=== PATIENT | male | born 1975 | race Caucasian/White ===

== ENCOUNTER 2024-01-09 14:41 | Inpatient (IN) | payer SELFPAY ==
[~2024-01-09] VITALS: Ht 167.6 cm; Wt 73.5 kg
[2024-01-09] MEDS: SODIUM CHLORIDE 0.9% 1000ML BAG (SEPSIS BOLUS) IV ONE (15:16)
[2024-01-09 15:21] LABS: BASOPHILS % 0.3 % (0.0-2.0); EOSINOPHILS % 1.9 % (0.0-5.0); LYMPHOCYTES % 29.2 % (20.0-50.0); MEAN CORPUSCULAR HEMOGLOBIN 29.6 pg (28.0-32.0); MEAN CORPUSCULAR HGB CONC 32.6 g/dL (31.0-37.0); MEAN PLATELET VOLUME 8.5 fl (7.4-10.4); MONOCYTES % 5.3 % (2.0-8.0); NEUTROPHILS % 63.3 % (40.0-76.0); PLATELET 281 x1000/uL (130-400); RED BLOOD CELL COUNT 4.39 mill/uL (4.7-6.1); WHITE BLOOD COUNT 13.9 x1000/uL (4.5-11.0)
[2024-01-09 15:30] LABS: CHLORIDE 108 mEq/L (98-107); POTASSIUM 3.3 mEq/L (3.5-5.1); SODIUM 140 mEq/L (136-145)
[2024-01-09 15:31] LABS: CALCIUM 9.7 mg/dL (8.7-10.4); CARBON DIOXIDE 25 mEq/L (21-32)
[2024-01-09] MEDS: CEFTRIAXONE 1GM/50ML 50 ML IV ONE (15:35)
[2024-01-09 15:36] LABS: CREATININE 0.9 mg/dL (0.6-1.3); GLUCOSE 131 mg/dL (70-105); UREA NITROGEN BLOOD 12 mg/dL (9-23)
[2024-01-09 15:38] LABS: ALANINE AMINOTRANSFERASE 16 IU/L (10-49); ALBUMIN 4.6 g/dL (3.2-4.8); ASPARTATE AMINOTRANSFERASE 18 IU/L (<34); BILIRUBIN DIRECT 0.1 mg/dL (<=3.0); BILIRUBIN TOTAL 0.5 mg/dL (0.1-1.0); PROTEIN TOTAL 8.2 g/dL (6.0-8.3)
[2024-01-09 15:43] LABS: TROPONIN I HIGH SENSITIVITY < 4 ng/L (3.0-53)
[2024-01-09 15:49] LABS: PROTHROMBIN TIME 10.7 sec (9.6-11.0)
[2024-01-09] MEDS: POTASSIUM CHLORIDE 20MEQ TABLET SR PO ONE (16:06)
[2024-01-09] MEDS: DOXYCYCLINE 100MG/100ML 100 ML IV ONE (16:50)
[2024-01-09] MEDS ORDERED: ACETAMINOPHEN 325MG TABLET PO PRN (17:15)
[2024-01-09] MEDS ORDERED: DOCUSATE SODIUM 100MG CAPSULE PO PRN (17:15)
[2024-01-09] MEDS ORDERED: CLONIDINE 0.1MG TABLET PO PRN (17:15)
[2024-01-09] MEDS ORDERED: GUAIFENESIN 200MG/10ML SUGAR FREE UDC PO PRN (17:15)
[2024-01-09] MEDS ORDERED: MAGNESIUM/ALUMINUM HYDROXIDE/SIMETHICONE 30ML UDC PO PRN (17:15)
[2024-01-09] MEDS ORDERED: ONDANSETRON HCL 4MG/2ML INJ IV PRN (17:15)
[2024-01-09 17:38] LABS: CLARITY URINE CLEAR (CLEAR); COLOR URINE YELLOW (YELLOW); GLUCOSE URINE NEGATIVE (NEGATIVE); KETONES URINE NEGATIVE (NEGATIVE); LEUKOCYTE ESTERASE URINE NEGATIVE (NEGATIVE); NITRITE URINE NEGATIVE (NEGATIVE); OCCULT BLOOD URINE 1+ (NEGATIVE); PROTEIN URINE NEGATIVE (NEGATIVE); SPECIFIC GRAVITY URINE 1.006 (1.005-1.030); UROBILINOGEN URINE 0.2 E.U./dL (0.2-1.0)
[2024-01-09] MEDS ORDERED: IPRATROPIUM/ALBUTEROL 0.5-3(2.5)MG/3ML NEB HHN NR (17:45)
[2024-01-09 17:50] LABS: *AMPHETAMINES SCREEN URINE NEGATIVE (NEGATIVE); *BARBITURATES SCREEN URINE NEGATIVE (NEGATIVE); *BENZODIAZEPINES SCREEN URINE NEGATIVE (NEGATIVE); *COCAINE SCREEN URINE NEGATIVE (NEGATIVE); CANNABINOID URINE SCREEN NEGATIVE (NEGATIVE); ECSTASY MDMA SCREEN URINE NEGATIVE (NEGATIVE); METHADONE URINE SCREEN NEGATIVE (NEGATIVE); OPIATES URINE SCREEN NEGATIVE (NEGATIVE); PHENCYCLIDINE URINE SCREEN NEGATIVE (NEGATIVE)
[2024-01-09 18:25] LABS: BACTERIA URINE TRACE; SQUAMOUS EPITHELIAL CELL URINE RARE /lpf (RARE/1+)
[2024-01-09 18:26] LABS: WBC URINE 0-2 /hpf (0-2)
[2024-01-09 18:26] LABS: IRON 28 ug/dL (65-175)
[2024-01-09 18:29] LABS: TOTAL IRON BINDING CAPACITY 358 ug/dl (250-425)
[2024-01-09] MEDS: METHYLPREDNISOLONE SOD SUCC 125MG/2ML (ACT-O-VIAL) IV NR (18:29)
[2024-01-09] MEDS: LACTATED RINGERS 1,000 ML IV ONE (18:29)
[2024-01-09] MEDS: BENZONATATE 100MG CAPSULE PO NR (18:30)
[2024-01-09 18:55] LABS: POTASSIUM 3.3 mEq/L (3.5-5.1)
[2024-01-09 18:56] LABS: FERRITIN 108 ng/mL (22-322); FOLIC ACID (FOLATE) SERUM 18.46 ng/mL (>5.38)
[2024-01-09 18:57] LABS: VITAMIN B12 SERUM 495 pg/mL (211-911)
[2024-01-09 20:00] VITALS: BP 127/68; PULSE 88; RESP 16; TEMP 37.66968; O2SAT 94
[2024-01-09] MEDS: FAMOTIDINE 20MG TABLET PO SCH (21:12)
[2024-01-09] MEDS: GUAIFENESIN 600MG ER TABLET PO SCH (21:12)
[2024-01-09 23:30] VITALS: BP 139/73; PULSE 79; RESP 18; TEMP 37.28076; O2SAT 96
[2024-01-09 23:31] LABS: CREATINE KINASE 94 IU/L (46-171)
[2024-01-09 23:32] LABS: CREATINE KINASE MB FRACTION < 0.5 ng/mL (0.5-3.6)
[2024-01-09 23:45] VITALS: BP 106/62; PULSE 78; RESP 20; TEMP 36.114; O2SAT 98
[2024-01-09 23:55] VITALS: BP 106/62; PULSE 78; RESP 20; TEMP 36.14
[2024-01-09 23:59] LABS: TROPONIN I HIGH SENSITIVITY < 4 ng/L (3.0-53)
[2024-01-10] MEDS ORDERED: BENZONATATE 100MG CAPSULE PO PRN
[2024-01-10] MEDS ORDERED: IOHEXOL-350 100 ML BOTTLE ONE (00:28)
[2024-01-10 04:00] VITALS: BP 102/64; PULSE 60; RESP 17; TEMP 36.72516; O2SAT 97
[2024-01-10] MEDS: DOXYCYCLINE 100MG/100ML 100 ML IV SCH ×2 (04:48→18:00)
[2024-01-10 07:52] LABS: CREATINE KINASE MB FRACTION < 0.5 ng/mL (0.5-3.6)
[2024-01-10 07:53] LABS: CARBON DIOXIDE 23 mEq/L (21-32); CHLORIDE 111 mEq/L (98-107); POTASSIUM 4.1 mEq/L (3.5-5.1); SODIUM 141 mEq/L (136-145)
[2024-01-10 07:54] LABS: CALCIUM 9.6 mg/dL (8.7-10.4)
[2024-01-10 07:56] LABS: CREATINE KINASE 76 IU/L (46-171)
[2024-01-10 07:57] LABS: T4 FREE 1.04 ng/dL (0.89-1.76); THYROID STIMULATING HORMONE 0.32 uIU/mL (0.55-4.78)
[2024-01-10 07:58] LABS: CREATININE 0.8 mg/dL (0.6-1.3); GLUCOSE 143 mg/dL (70-105)
[2024-01-10 07:59] LABS: TRIGLYCERIDE 52 mg/dL (0-150); UREA NITROGEN BLOOD 11 mg/dL (9-23)
[2024-01-10 08:00] VITALS: BP 109/74; PULSE 65; RESP 17; TEMP 36.61404; O2SAT 97
[2024-01-10 08:00] LABS: LDL CHOLESTEROL 165 mg/dL (5-100)
[2024-01-10 08:01] LABS: CHOLESTEROL 207 mg/dL (<200); HDL CHOLESTEROL 45 mg/dL (>55); PHOSPHORUS 3.6 mg/dL (2.5-4.9)
[2024-01-10 08:21] LABS: TROPONIN I HIGH SENSITIVITY < 4 ng/L (3.0-53)
[2024-01-10 08:22] LABS: BASOPHILS % 0.1 % (0.0-2.0); HEMATOCRIT. 38.5 % (42.0-52.0); HEMOGLOBIN. 12.5 g/dL (14.0-18.0); LYMPHOCYTES % 11.9 % (20.0-50.0); MEAN CORPUSCULAR HEMOGLOBIN 29.6 pg (28.0-32.0); MEAN CORPUSCULAR HGB CONC 32.4 g/dL (31.0-37.0); MEAN CORPUSCULAR VOLUME 91.4 fL (80.0-94.0); MEAN PLATELET VOLUME 9.2 fl (7.4-10.4); PLATELET 261 x1000/uL (130-400); RED BLOOD CELL COUNT 4.21 mill/uL (4.7-6.1); RED CELL DISTRIBUTION WIDTH 15.3 % (11.6-14.6); WHITE BLOOD COUNT 13.2 x1000/uL (4.5-11.0)
[2024-01-10] MEDS: MULTIVITAMINS,THER W-MINERALS TABLET PO SCH (09:37)
[2024-01-10 12:00] VITALS: BP 102/58; PULSE 76; RESP 18; TEMP 36.28068; O2SAT 95
[2024-01-10 16:00] VITALS: BP 103/61; PULSE 58; RESP 18; TEMP 36.50292; O2SAT 97
[2024-01-10] MEDS: CEFTRIAXONE 2GM/50ML 50 ML IV SCH (16:42)
[2024-01-10 18:30] LABS: ALANINE AMINOTRANSFERASE 14 IU/L (10-49); ALBUMIN 4.4 g/dL (3.2-4.8); ASPARTATE AMINOTRANSFERASE 15 IU/L (<34); BILIRUBIN DIRECT 0.2 mg/dL (<=3.0)
[2024-01-10 18:31] LABS: BILIRUBIN TOTAL 0.5 mg/dL (0.1-1.0); PROTEIN TOTAL 7.8 g/dL (6.0-8.3)
[2024-01-10 20:00] VITALS: BP 122/68; PULSE 67; RESP 18; TEMP 36.55848; O2SAT 96
[2024-01-10] MEDS: ATORVASTATIN CALCIUM 20MG TABLET PO SCH (21:49)
[2024-01-11] VITALS (7 sets, daily range): BP systolic 98–115; BP diastolic 52–69; PULSE 59–79; RESP 18–20; TEMP 36.22512–37.00296; O2SAT 95–97
[2024-01-11] MEDS ORDERED: BUDESONIDE 0.5MG/2ML NEB HHN SCH (09:30)
[2024-01-11 11:55] LABS: BASOPHILS % 0.2 % (0.0-2.0); EOSINOPHILS % 3.4 % (0.0-5.0); HEMATOCRIT. 38.9 % (42.0-52.0); HEMOGLOBIN. 12.4 g/dL (14.0-18.0); LYMPHOCYTES % 25.1 % (20.0-50.0); MEAN CORPUSCULAR HEMOGLOBIN 29.1 pg (28.0-32.0); MEAN CORPUSCULAR HGB CONC 31.8 g/dL (31.0-37.0); MEAN CORPUSCULAR VOLUME 91.6 fL (80.0-94.0); MEAN PLATELET VOLUME 8.6 fl (7.4-10.4); MONOCYTES % 8.9 % (2.0-8.0); NEUTROPHILS % 62.4 % (40.0-76.0); PLATELET 251 x1000/uL (130-400); RED BLOOD CELL COUNT 4.24 mill/uL (4.7-6.1); RED CELL DISTRIBUTION WIDTH 15.2 % (11.6-14.6); WHITE BLOOD COUNT 11.5 x1000/uL (4.5-11.0)
[2024-01-11 11:56] LABS: CHLORIDE 109 mEq/L (98-107); POTASSIUM 3.8 mEq/L (3.5-5.1); SODIUM 140 mEq/L (136-145)
[2024-01-11 11:57] LABS: CARBON DIOXIDE 25 mEq/L (21-32)
[2024-01-11 11:58] LABS: CALCIUM 9.3 mg/dL (8.7-10.4)
[2024-01-11 12:02] LABS: CREATININE 0.8 mg/dL (0.6-1.3); GLUCOSE 90 mg/dL (70-105)
[2024-01-11 12:03] LABS: UREA NITROGEN BLOOD 15 mg/dL (9-23)
[2024-01-11] MEDS ORDERED: ACETYLCYSTEINE 200MG/ML 20% VIAL 10ML INH SCH (14:00)
[2024-01-11] MEDS: ACETYLCYSTEINE 200MG/ML 20% VIAL 4ML INH SCH (14:45)
[2024-01-11] MEDS: IPRATROPIUM/ALBUTEROL 0.5-3(2.5)MG/3ML NEB HHN PRN (14:46)
[2024-01-11] MEDS: CEFTRIAXONE 2GM/50ML 50 ML IV SCH (15:55)
[2024-01-11] MEDS: METHYLPREDNISOLONE SOD SUCC 125MG/2ML (ACT-O-VIAL) IV SCH (18:47)
[2024-01-11] MEDS: GUAIFENESIN/DM 600MG/30MG ER TAB 12HR PO SCH (21:30)
[2024-01-11] MEDS: IPRATROPIUM/ALBUTEROL 0.5-3(2.5)MG/3ML NEB HHN SCH (23:42)
[2024-01-12] VITALS (9 sets, daily range): BP systolic 109–129; BP diastolic 64–83; PULSE 68–99; RESP 18–20; TEMP 36.05844–36.72516; O2SAT 94–97
[2024-01-12 11:38] LABS: MEAN CORPUSCULAR HEMOGLOBIN 30.4 pg (28.0-32.0); MEAN CORPUSCULAR HGB CONC 33.3 g/dL (31.0-37.0); MEAN CORPUSCULAR VOLUME 91.2 fL (80.0-94.0); PLATELET 295 x1000/uL (130-400); RED BLOOD CELL COUNT 4.27 mill/uL (4.7-6.1); RED CELL DISTRIBUTION WIDTH 15.2 % (11.6-14.6); WHITE BLOOD COUNT 17.5 x1000/uL (4.5-11.0)
[2024-01-12 11:42] LABS: CHLORIDE 107 mEq/L (98-107); POTASSIUM 3.8 mEq/L (3.5-5.1); SODIUM 138 mEq/L (136-145)
[2024-01-12 11:43] LABS: CARBON DIOXIDE 23 mEq/L (21-32)
[2024-01-12 11:48] LABS: CREATININE 0.9 mg/dL (0.6-1.3); GLUCOSE 226 mg/dL (70-105); UREA NITROGEN BLOOD 17 mg/dL (9-23)
[2024-01-12] MEDS: ACETAMINOPHEN 325MG TABLET PO PRN (21:18)
[2024-01-12] MEDS: METHYLPREDNISOLONE SOD SUCC 40MG/ML (ACT-O-VIAL) IV SCH (21:18)
[2024-01-13] VITALS (7 sets, daily range): BP systolic 100–117; BP diastolic 57–80; PULSE 72–80; RESP 17–20; TEMP 36.3918–37.00296; O2SAT 94–97
[2024-01-13 08:05] LABS: HEMATOCRIT 38.1 % (42.0-52.0); HEMOGLOBIN 12.7 g/dL (14.0-18.0); MEAN CORPUSCULAR HEMOGLOBIN 30.3 pg (28.0-32.0); MEAN CORPUSCULAR HGB CONC 33.4 g/dL (31.0-37.0); MEAN CORPUSCULAR VOLUME 90.9 fL (80.0-94.0); PLATELET 305 x1000/uL (130-400); RED BLOOD CELL COUNT 4.19 mill/uL (4.7-6.1); RED CELL DISTRIBUTION WIDTH 15.1 % (11.6-14.6); WHITE BLOOD COUNT 20.4 x1000/uL (4.5-11.0)
[2024-01-13 08:32] LABS: CHLORIDE 108 mEq/L (98-107); POTASSIUM 4.2 mEq/L (3.5-5.1); SODIUM 140 mEq/L (136-145)
[2024-01-13 08:33] LABS: CALCIUM 9.7 mg/dL (8.7-10.4); CARBON DIOXIDE 26 mEq/L (21-32)
[2024-01-13 08:38] LABS: CREATININE 0.8 mg/dL (0.6-1.3); GLUCOSE 130 mg/dL (70-105); UREA NITROGEN BLOOD 14 mg/dL (9-23)
[2024-01-14] VITALS (12 sets, daily range): BP systolic 99–125; BP diastolic 63–83; PULSE 65–82; RESP 14–20; TEMP 36.33624–36.61404; O2SAT 94–98
[2024-01-14 07:00] LABS: HEMATOCRIT 38.6 % (42.0-52.0); HEMOGLOBIN 12.7 g/dL (14.0-18.0); MEAN CORPUSCULAR HEMOGLOBIN 29.9 pg (28.0-32.0); MEAN CORPUSCULAR HGB CONC 32.9 g/dL (31.0-37.0); PLATELET 310 x1000/uL (130-400); RED BLOOD CELL COUNT 4.24 mill/uL (4.7-6.1); RED CELL DISTRIBUTION WIDTH 15.1 % (11.6-14.6)
[2024-01-14 07:16] LABS: CHLORIDE 106 mEq/L (98-107); POTASSIUM 4.2 mEq/L (3.5-5.1); SODIUM 139 mEq/L (136-145)
[2024-01-14 07:17] LABS: CALCIUM 9.8 mg/dL (8.7-10.4); CARBON DIOXIDE 24 mEq/L (21-32)
[2024-01-14 07:22] LABS: CREATININE 0.8 mg/dL (0.6-1.3); GLUCOSE 133 mg/dL (70-105); UREA NITROGEN BLOOD 15 mg/dL (9-23)
[2024-01-14] MEDS: FAMOTIDINE 20MG TABLET PO SCH (12:00)
[2024-01-15] VITALS (8 sets, daily range): BP systolic 108–138; BP diastolic 61–79; PULSE 77–109; RESP 16–20; TEMP 36.61404–37.11408; O2SAT 93–97
[2024-01-15 07:45] LABS: HEMATOCRIT 39.8 % (42.0-52.0); HEMOGLOBIN 13.2 g/dL (14.0-18.0); MEAN CORPUSCULAR HEMOGLOBIN 30.1 pg (28.0-32.0); MEAN CORPUSCULAR HGB CONC 33.2 g/dL (31.0-37.0); MEAN CORPUSCULAR VOLUME 90.6 fL (80.0-94.0); PLATELET 338 x1000/uL (130-400); RED BLOOD CELL COUNT 4.39 mill/uL (4.7-6.1); WHITE BLOOD COUNT 18.1 x1000/uL (4.5-11.0)
[2024-01-15 07:52] LABS: CARBON DIOXIDE 25 mEq/L (21-32); CHLORIDE 104 mEq/L (98-107); POTASSIUM 4.5 mEq/L (3.5-5.1); SODIUM 137 mEq/L (136-145)
[2024-01-15 07:53] LABS: CALCIUM 9.8 mg/dL (8.7-10.4)
[2024-01-15 07:58] LABS: CREATININE 0.8 mg/dL (0.6-1.3); GLUCOSE 132 mg/dL (70-105); UREA NITROGEN BLOOD 17 mg/dL (9-23)
[2024-01-15] MEDS ORDERED: BENZ100C86 PO (11:09)
[2024-01-15] MEDS ORDERED: ATOR20TA PO (11:09)
[2024-01-15] MEDS ORDERED: ALBU18HF2 IH (11:09)
[2024-01-15] MEDS ORDERED: AZIT500T8 MT (11:09)
[2024-01-15] MEDS ORDERED: GUAI-741 PO (11:09)
[2024-01-15] MEDS ORDERED: METH4TAB95 MT (11:09)
== END 2024-01-15 19:01 | disposition home or self-care (01) | DRG 720 ==
LOC: ER 14:41 → EDBEDREQ 15:16 → 5WST 18:52 → 7EST 23:30
PROVIDERS: ADMIT Hospitalist; ATTEND Hospitalist
DX: A41.9 Sepsis, unspecified organism (principal); J96.01 Acute respiratory failure with hypoxia; E87.20 Acidosis, unspecified; R04.2 Hemoptysis; A15.0 Tuberculosis of lung; D64.9 Anemia, unspecified; J20.9 Acute bronchitis, unspecified; E03.8 Other specified hypothyroidism; E87.6 Hypokalemia; Z20.822 Contact with and (suspected) exposure to COVID-19; E66.9 Obesity, unspecified; E78.5 Hyperlipidemia, unspecified; J98.4 Other disorders of lung; R73.9 Hyperglycemia, unspecified; R94.31 Abnormal electrocardiogram [ECG] [EKG]; Z68.26 Body mass index [BMI] 26.0-26.9, adult; Z78.9 Other specified health status
CPT/HCPCS: 36415; 71045; 71275; 80048; 80061; 80076; 80305; 81003; 82550; 82553; 82607; 82728; 82746; 83036; 83540; 83550; 83605; 83735; 83880; 84100; 84132; 84145; 84439; 84443; 84484; 85025; 85027; 85651; 86850; 86900; 87070; 87116; 87426; 87556; 93005; 94640; 97161; 97165; 99291; J0696; J2919; J2920; J3490; J7030; J7608; J7626; Q9967